=== PATIENT | female | born 1940 | race Caucasian/White ===

== ENCOUNTER 2017-02-26 12:47 | Outpatient (CLI) | payer MEDICARE, BC ==
[2017-02-26 14:05] LABS: ALT (SGPT) 23 U/L (8-55); AST (SGOT) 27 U/L (5-34); Albumin 4.3 g/dL (3.4-4.8); Alkaline Phosphatase 74 U/L (40-150); Anion Gap 14 mmol/L (10-20); BUN (Urea Nitrogen) 17 mg/dL (9.8-20.1); Bilirubin, Total 1.4 mg/dL (0.2-1.2); Calc. Creatinine Clearance 0 mL/min (70-130); Carbon Dioxide 25 mmol/L (23-31); Chloride 106 mmol/L (98-107); Estimated GFR-MDRD 52; Globulin 2.7 g/dL (2.4-3.5); Glucose 93 mg/dL (83-110); Potassium 4.4 mmol/L (3.5-5.1); Sodium 141 mmol/L (136-145)
[2017-02-26 14:11] LABS: Hemoglobin 12.9 g/dL (12.0-16.0); Mean Corpuscular HGB CONC 32.9 g/dL (32.0-36.0); Mean Corpuscular Hemoglobin 29.3 pg (27.0-31.0); Mean Corpuscular Volume 89.1 fl (81.0-99.0); Mean Platelet Volume 4.8 fL (7.4-10.4); Platelet Count 305 thou/uL (130-400); RBC Distribution Width 12.3 % (11.5-14.5); White Blood Cell (WBC) Count 6.5 thou/uL (4.8-10.8)
[2017-02-26 14:12] LABS: Band 1 % (5-11); Lymphocytes 23 % (21-51); MDiff Complete? YES; Monocytes 11 % (0-10); Neutrophil 65 % (42-75); PLT Morphology Comment Appears Adequate
== END 2017-02-26 12:48 | disposition home or self-care (01) ==
LOC: NAV LAB 12:47
PROVIDERS: ATTEND Internal Medicine Rheumatology
DX: M06.00 Rheumatoid arthritis without rheumatoid factor, unspecified site (principal); Z79.899 Other long term (current) drug therapy
CPT/HCPCS: 36415; 80053; 85025; 85652